=== PATIENT | female | born 1960 | race Asian ===

== ENCOUNTER 2020-03-24 11:05 | Inpatient (IN) | payer OTHER ==
[~2020-03-24] VITALS: Ht 152.4 cm; Wt 70.8 kg
[2020-03-24 11:19] VITALS: Ht 152.4 cm; Wt 70.8 kg
--- NOTE | 2020-03-24 11:50 | NUR ---
PT BIB SELF C/O L LEG PAIN X1 MONTH SHIP PILOT. PT STATES HAVING HX OF DM. PT STATES 1 MONTH AGO L LEG WAS "ITCHY AND EXCESSIVELY SCRATHED AND CAUSED OPEN SORES" YELLOW DRAINAGE NOTED TO COME FROM MULTIPLE OPEN SORES LOCATED ON LLE BELOW THE KNEE AND L FOOT. PT HAS SWELLING AND THAT IS WARM TO THE TOUCH ON LLE, + PULSES. PT AMBULATED TO [facility] AND STATES INCREASED PAIN WITH AMBULATION. PT STATES 10/10 BURING PAIN. PT IS A&OX4, VERABILZES NEEDS, IN POSITION OF COMFORT, LUNGS CTA, RESP E/U AND PLACED ON FULL CM. WILL CONTINUE TO [facility].
--- NOTE | 2020-03-24 12:02 | NUR ---
US IN PROGRESS
[2020-03-24 12:17] LABS: ALKALINE PHOSPHATASE 313 U/L (46-116); ALT/SGPT 14 U/L (14-59); AST/SGOT 20 U/L (15-37); CARBON DIOXIDE 29.4 mmol/L (21-32); CHLORIDE SERUM 100 mmol/L (98-107); CREATININE SERUM 1.3 mg/dL (0.6-1.0); GFR1 44 mL/min; GLUCOSE SERUM 78 mg/dL (74-106); SODIUM SERUM 138 mmol/L (136-145); TOTAL PROTEIN, SERUM 6.6 g/dL (6.4-8.2)
[2020-03-24] MEDS ORDERED: HUMALOG100 U/ML SC (12:20)
[2020-03-24] MEDS ORDERED: LANTI SQ (12:20)
[2020-03-24 12:21] LABS: ALBUMIN 1.2 g/dL (3.4-5.0)
--- NOTE | 2020-03-24 12:21 | NUR ---
PT STATES SHE TAKES AN UNKNOWN HTN MEDICATION
[2020-03-24 12:23] LABS: POTASSIUM SERUM 1.6 mmol/L (3.5-5.1)
[2020-03-24 12:46] LABS: PLATELET COUNT 454 x10^3mcL (130-400)
[2020-03-24 12:49] LABS: BAND NEUTROPHIL 2 % (0-10); MONOCYTE 1 % (0-7); PLATELET MORPHOLOGY PLATELETS INCREASED; SEGMENTED NEUTROPHILS 93 % (37-75); rbc morphology (normal/abnorm) NORMAL (NORMAL)
--- NOTE | 2020-03-24 13:41 | NUR ---
PT OFF THE FLOOR TO CT
--- NOTE | 2020-03-24 13:41 | NUR ---
SPOKE WITH NEPHEW ON PHONE FOR UPDATE.
--- NOTE | 2020-03-24 13:45 | NUR ---
PT NEPHEW CALLING FROM [employer] TO LEAVE HIS CONTACT CELL NUMBER NEEDED NAYELI:[phone]
--- NOTE | 2020-03-24 13:50 | NUR ---
PT TAKEN TO CT. IV IN LAC WAS DISLODGED WHEN PT WAS SLIDING FROM GURNEY TO CT BED FOR SCAN. BLEEDING WAS CONTROLLED AND HAS STOPPED AT THIS TIME. POTASSIUM CHLORIDE INFUSING WAS STOPPED TO LAC AND STARTED ON RAC.
--- NOTE | 2020-03-24 15:30 | NUR ---
LAB AT BEDSIDE FOR REPEAT LACTIC ACID.
--- NOTE | 2020-03-24 15:57 | NUR ---
PT GIVEN PAUL CRACKERS AND WATER, AWARE.
[2020-03-24 16:30] LABS: T3 TOTAL 0.13 ng/mL
[2020-03-24 16:31] LABS: FREE T4 0.7 ng/dL (0.76-1.46); MAGNESIUM 2.1 mg/dL (1.8-2.4); PHOSPHOROUS 2.3 mg/dL (2.5-4.9)
[2020-03-24 16:33] LABS: CHOLESTEROL/HDL RATIO 8.7; T4(THYROXINE) 2.1 ug/dL (4.7-13.3)
--- NOTE | 2020-03-24 17:01 | NUR ---
PT DISLODGED IV FROM RAC. BLEEDING WAS CONTROLLED AND IV D/C'ED. ANGIOCATH WAS INTACT ADN NEW IV STARTED IN R WRIST
--- NOTE | 2020-03-24 17:10 | NUR ---
REPORT GIVEN TO REENA TO ADMIT PT TO ROOM 234B AND ASSUME CARE.
[2020-03-24 17:26] LABS: microscopic required? YES; urine erythrocyte TRACE (NEGATIVE)
[2020-03-24 17:52] LABS: AMPHETAMINE QUAL UR NONE DETECTED (See below)
[2020-03-24 17:53] VITALS: BP 168/83
--- NOTE | 2020-03-24 18:00 | NUR ---
PT ARRIVED VIA GURNEY WITH MANAGER PERIOPERATIVE BY BEDSIDE. PT IS AWAKE ALERT, DENIES PAIN AND SOB. RESOURCE RN BHAVESH WILL HELP EM WITH ADMISSION PAPERWORK AND ASSESSMENT. WILL MONITOR PT.
--- NOTE | 2020-03-24 18:06 | NUR ---
RECEIVED PT FROM ER, PT ADMIT FOR LEFT LEG CELLULITIS, PT IS A/O X4, VERBAL RESPONSIVE. LUNG SOUND CLEAR BILATERAL, NO COUGH, NO SOB. PT IS ON TELE 10, SR WITH 1ST DEGREE, DENY ANY CHEST PAIN OR DISCOMFORT. BOWEL SOUND PRESENT ALL 4 QUADRNTS, NO DISTENTION, NO TENDER. PEDAL PULSE PRESENT BOTH FEET BUT LEFT FEET VERY WEAK. THERE SWELLING AND RED AT LEFT LEG. MULTIPLE OPEN WOUND AND SKIN TEARS AT LEFT LEG. PODATRIST AT BEDSIDE. IV AT RIGHT WRIST, NO LEAKING, NO INFILTRATION. ALL ADLS ASSIST, ALL NEED MET, CALL LIGHT IN REACH, WILL CONTINUE TO MONITOR.
--- NOTE | 2020-03-24 19:00 | NUR ---
PT IS AWAKE, REALXED. DENIES ANY PAIN THIS TIME AND SOB. WILL ENDORSE CARE TO PENSION FUND MANAGER RN.
--- NOTE | 2020-03-24 19:30 | NUR ---
RECEIVED PT IN BED AWAKE RESTING COMFORTABLY. A/O X4 ABLE TO MAKE NEEDS KNOWN, ABLE TO FOLLOW COMMANDS, SPEECH IS CLR, NO C/O SALAZAR OR DIZZINESS. RADIAL AND PEDAL PULSES PRESENT, EDEMA ON LLE +1 NOTED. RESP IS EVEN AND UNLABORED, ON ROOM AIR WITH SPO2 97%, LUNG SOUNDS CLR BILATERALLY. ACTIVE BS PRESENT X4, NO C/O NVD, PT VOIDS FREELY, NO C/O DISCOMFORT. REDNESS AND MULTIPLE OPEN WOUND ON LLE, OPEN TO AIR, C/O LEG PAIN THAT IS TOLERABLE AT THIS TIME. IV SITE ON THE RW, PATENT AND FLUSHING WELL. WILL CONT TO MONITOR PT FOR CHANGES IN CONDITION, BED TO LOWEST POSITION, CALL LIGHT WITHIN REACH.
--- NOTE | 2020-03-24 19:45 | NUR ---
CALLED PHARMACY REGARDING LATE MEDICATIONS (ZOSYN, VANCO, AND K-RIDER). WAS SUGGESTED TO GIVE ZOSYN FIRST THEN GIVE VANCO AND K-RIDER TOGETHER SINCE THEY ARE COMPATIBLE. WILL GIVE SUGGESTED. AND ENDORSE CARE TO BLAIR LERMA RN.
[2020-03-24 21:03] VITALS: BP 157/75
[2020-03-24 21:25] LABS: CALCIUM 7.4 mg/dL (8.5-10.1); CARBON DIOXIDE 28.9 mmol/L (21-32); CREATININE SERUM 1.2 mg/dL (0.6-1.0)
[2020-03-24 21:35] LABS: POTASSIUM SERUM 2.2 mmol/L (3.5-5.1)
--- NOTE | 2020-03-24 22:21 | NUR ---
DR. ROCHA MADE AWARE OF PT'S K LEVEL 2.2. RECEIVED NO NEW ORDER AT THIS TIME.
[2020-03-25 05:19] VITALS: BP 108/52
--- NOTE | 2020-03-25 05:25 | NUR ---
VANCOMYCIN COMPLETED DOSE AT 0430, SPOKE WITH PHARMACY TO ADJUST NEXT DOSE ACCRDINGLY. VANCOMYCIN TROUGH FOR 03/25 AT 1800 CANCELLED. ORDERED NEW VANCOMYCIN THROUGH AT 1400, 1 HOUR BEFORE NEXT VANCO DOSE AT 1500. WILL ENDORSE TO NEXT SHIFT NURSE.
--- NOTE | 2020-03-25 06:27 | NUR ---
PT STANDING ON THE SIDE OF THE BED, GOT OUT OF BALANCE AND LANDED TO THE FLOOR ON HER BUTTOCKS. NO IMMEDDIATE INJURY, NO BLEEDING NOTED. PT ASSISTED BACK IN BED WITH THE HELP OF 3 STAFF. PT DENIES ANY PAIN AT THIS TIME, DENIES SALAZAR OR DIZZINESS. PT STATES SHE LANDED ONLY ON HER BUTTOCKS AND DID NOT HIT HER HEAD. PT WAS SEEN AND EXAMINED BY DR. ROCHA. RECEIVED NO NEW ORDER AT THIS TIME. BED TO LOWEST POSITION, CALL LIGHT WITHIN REACH, BED ALARM ON AND INSTRUCTED TO USE THE CALL LIGHT IF NEEDED HELP. CONT TO PROVIDE PT WITH CLUTTER FREE ENVIRONMENT. WILL CONT TO MONITOR FOR CHANGES IN CONDITION.
--- NOTE | 2020-03-25 07:15 | NUR ---
PT RECEIVED FROM LABORATORY SPECIALIST RN. PT IS CURRENTLY SLEEPING, NO SIGNS OF PAIN AND TROUBLE BREATHING. REPORTED FALL LAST NIGHT BECAUSE PT WAS OUT OF BALANCE. NO INJURIES REPORTED. SCANNED 2100 VANCO WAS GIVEN SEPARATELY FROM POTASSIUM CHLORIDE (PHARMACIST SAID THEY WERE COMPATIBLE TO GIVE TOGETHER). VANCO WAS GIVEN AT 0430 AND NIGHT RN INFORMED PHARMACIST WHO WOULD MOVE NEXT VANCO DOSE (0700) TO 1700. WILL FOLLOW UP WITH PHARMACY TO CHANGE VANCO ADMINISTRATION TIME. BED AT LOWEST POSITION AND CALL LIGHT NEXT TO PT. WILL CONTINUE TO MONITOR.
--- NOTE | 2020-03-25 07:30 | NUR ---
WAS PRESENT WHEN J2EE ARCHITECT CHANGED DRESSING FOR PT's LEFT LEG CELLULITIS. SHE STATED THAT THEY WILL PERFORM DAILY DRESSING CHANGES UNLESS THEY INPUT AN ORDER. THEY ARE CURRENTLY CLEANING THE PT WITH BETADINE, COVERING WITH EMOLLIENT DRESSING, THEN LOOSELY WRAP WITH GAUZE AND KERLEX.
[2020-03-25 08:07] VITALS: BP 153/70
[2020-03-25 08:28] LABS: PLATELET COUNT 362 x10^3mcL (130-400); RED CELL DISTRIBUTION WIDTH 14.2 % (11.5-14.5)
[2020-03-25 08:35] LABS: CALCIUM 7.3 mg/dL (8.5-10.1); CARBON DIOXIDE 24.4 mmol/L (21-32); CREATININE SERUM 1.2 mg/dL (0.6-1.0); PHOSPHOROUS 3.7 mg/dL (2.5-4.9)
--- NOTE | 2020-03-25 09:00 | NUR ---
PAGED TO INFORM HER OF PT WBC, POTASSIUM, AND BP. WILL WAIT FOR CALL BACK.
[2020-03-25 09:25] LABS: POTASSIUM SERUM 2.6 mmol/L (3.5-5.1)
--- NOTE | 2020-03-25 09:55 | NUR ---
SPOKE TO PHARMACIST ABOUT PT's CHANGE OF ADMINSITRATION TIME FOR [facility]. PHARMACIST STATES SHE WILL CHANGE ADMIN TIME TO 1700.
--- NOTE | 2020-03-25 10:00 | NUR ---
PAGED TO INFORM HER OF PT WBC, POTASSIUM, AND BP. WILL WAIT FOR CALL BACK.
--- NOTE | 2020-03-25 10:45 | NUR ---
DOCTOR ALEJANDRINA PRESENT AT [facility] WITH RESIDENTS. HE IS INFORMED OF PT WBC, AND K. PT IS ON ABX AND PENDING WOUDN CULTURE. WILL ORDER REPLACEMENT FOR POTASSIUM. DR. TINOCO ALSO STATED THAT HE WILL INPUT A MEDICATION FOR HER BLOOD PRESSURE. DRs NOTED PT EDEMA AND WILL ALSO INPUT ALBUMIN AND LASIX. PT IS STABLE, DENIES ANY NEEDS AT THIS TIME. WILL CONTINUE TO MONITOR.
--- NOTE | 2020-03-25 11:20 | NUR ---
FNS STAFF WAS INFORMED THAT PT IS VEGETARIAN DURING HER ROUNDS.
--- NOTE | 2020-03-25 11:30 | NUR ---
BEDSIDE COMMODE BY PT BEDSIDE. PT STATES SHE IS MORE COMFORTABLE USING A BEDSIDE COMMODE COMPARED TO USING THE RESTROOM.
--- NOTE | 2020-03-25 11:47 | NUR ---
[facility] CALLED TO MAKE SURE PT WAS NOT BUSY SO THEY CAN PERFORM THEIR EXAM.
[2020-03-25 11:57] LABS: BAND NEUTROPHIL 1 % (0-10); MONOCYTE 2 % (0-7); SEGMENTED NEUTROPHILS 93 % (37-75)
[2020-03-25 11:58] LABS: rbc morphology (normal/abnorm) NORMAL (NORMAL)
[2020-03-25 12:03] VITALS: BP 150/79
--- NOTE | 2020-03-25 14:00 | NUR ---
PT IS CURRENTLY SLEEPING, AROUSABLE TO VERBAL STIMULI. DENIES SOB. PT REPORTS THAT PAIN IS MANGEABLE THIS TIME ON LEFT LOWER REXTREMITY. SAFETY PRECAUTIONS IN PLACE. WILL CONTINUE TO MONITOR.
[2020-03-25 16:16] VITALS: BP 153/79
--- NOTE | 2020-03-25 18:00 | NUR ---
PT IS AWAKE THIS TIME, RELAXED. PAIN IS STILL MANGEABLE. DENIES ANY SOB. SAFETY PRECAUTIONS IN PLACE. WILL CONTINUE TO MONITOR.
--- NOTE | 2020-03-25 18:30 | NUR ---
PT IS STABLE. PAIN IS STILL MANGEABLE. NO SOB. PT ASKED IF SHE WANTED MEDICATION FOR HER COUGHS, PT DENIED ALL DAY AND STATED THAT COUGH IS CHRONIC. SAFETY PRECAUTIONS IN PLACE. WILL ENDORSE CARE TO INSOLVENCY CONSULTANT RN.
--- NOTE | 2020-03-25 19:30 | NUR ---
RECEIVED PT IN BED, AWAKE RSTING CMFORTABLY. PT IS A/O X4 ABLE TO MAKE NEEDS KNOWNS, ABLE TO FOLLOW COMMANDS, ABLE TO MAKE NEEDS KNOWN, SPEECH IS CLR, NO SALAZAR OR DIZZINESS NOTED. RESP IS EVEN AND UNLABORED, LUNG SOUNDS CLR, SPO2 96% ON RA. RADIAL AND PEDAL PULSES PRESENT, EDEMA ON LLE +1 NOTED. ABD ROUND AND SOFT, ACTIVE BS PRESENT X4 QUADS, NO C/O NVD. VOIDS FREELY, NO DISCOMFORT WHEN URINATING. SKIN IS WARM, DRY AND INTACT. LEFT LEG WITH MULTIPLE WOUNDS COVERED WITH DRESSING CDI. IV SITE ON THE RIGHT WRIST, PATENT AND FLUSHING WELL. ON ATB ZOZYN AND VANCOMYCIN. BED TO LOWEST POSITION CALL LIGHT WITHIN REACH AND INSTRUCTED PT TO ASK HELP WHEN NEEDED. WILL CONT TO MONITOR.
--- NOTE | 2020-03-25 20:15 | NUR ---
GOSPEL SINGER REPORTED PT WITH INCREASE TEMP OF 100.2 AND ELEVATED BP OF 167/78. COOLING MEASURES PROVIDED, MADE PT COMFORTABLE IN BED. CONT TO MONIOTR BP, PT HAS NO C/O DIONTE PAIN.
[2020-03-25 20:22] VITALS: BP 167/78
--- NOTE | 2020-03-25 21:30 | NUR ---
PT TEMP 99.0. NO C/O PAIN, NO ACUTE DUSTRESS NOTED. RESP EVEN AND UNLABORED. WILL CONT TO MONIOTR FOR CHANGES IN CONDITON.
[2020-03-25 23:07] VITALS: BP 166/79
--- NOTE | 2020-03-25 23:07 | NUR ---
PT WITH C/O PAIN ON THE LEFT LEG 5/10, NORCO PO GIVEN ORDERED. ALSO, PT'S BP ELEVATED, TAKEN MULTIPLE TIMES. LAST RE CHECK OF BP 166/79, HR 85. DR. ROCHA MADE AWARE. PER DR, MONITOR BP FOR NOW AND UPDATE HER IN AN HOUR. DR. RIZVI ALSO MADE AWARE REGARDING PT'S NON PRODUCTIVE COUGH. RECHECKED TEMP, 99.0
[2020-03-26 00:44] VITALS: BP 148/79
--- NOTE | 2020-03-26 00:50 | NUR ---
PAGED DR. ROCHA TO REPORT PT'S BP LOWERED TO 148/79, TEMP 98.9. PT IN BED RESTING COMFORTABLY WITH EYES CLOSED, NO C/O PAIN, NO ACUTE DISTRESS NOTED. RESP EVEN AN UNLABORED. WILL CONT TO MONITOR.
[2020-03-26 05:31] VITALS: BP 167/80
[2020-03-26 06:49] LABS: PLATELET COUNT 394 x10^3mcL (130-400); RED CELL DISTRIBUTION WIDTH 14.3 % (11.5-14.5)
--- NOTE | 2020-03-26 06:58 | NUR ---
PT GIVEN APRESOLINE PO ORDERED FOR SBP>160, RECHECKED BP AFTER 1 HOUR, BP 152/65, HR 83. PT REMAINED IN BED NO ACUTE DISTRESS NOTED. RESP IS EVEN AND UNLABORED. CONT ON ATB VANCO AND ZOSYN, NO ASE NOTED. LEFT LEG WITH LIGHT DRESSING NOTED WITH MOD AMOUNT OF DISCHARGE. BED TO LOWEST POSITION GOPI LIGHT WITHIN REACH, WILL CONT TO MONIOTR PT FOR CHANGES IN CONDITION.
[2020-03-26 07:30] LABS: CALCIUM 6.8 mg/dL (8.5-10.1); CARBON DIOXIDE 24.9 mmol/L (21-32); CREATININE SERUM 1.1 mg/dL (0.6-1.0); PHOSPHOROUS 2.9 mg/dL (2.5-4.9)
--- NOTE | 2020-03-26 07:30 | NUR ---
PT RECEVIED FROM BELT GLASS SANDER RN. RN REPORTED PT FELL DURING BELT GLASS SANDER BUT NO INJURY REPORTED. PT IS CURRENTLY SLEEPING, EASILY ARUOSABLE TO VERBAL STIMULI. PT STATES SHE HAS PAIN 6/10 BUT MANGEABLE THIS TIME. SHE IS AWARE OF PAIN MEDICATION AVAILABLE. DENIES SOB THIS TIME. WILL DOCUMENT ASSESSMENT. SAFETY PRECAUTIONS IN PLACE. WILL CONTIUE TO MONITOR.
[2020-03-26 08:14] LABS: POTASSIUM SERUM 2.6 mmol/L (3.5-5.1)
[2020-03-26 08:15] LABS: ALBUMIN 1.3 g/dL (3.4-5.0)
[2020-03-26 08:38] VITALS: BP 160/100
--- NOTE | 2020-03-26 09:00 | NUR ---
LAB REPORTED CRITICAL LAB VALUE K=2.6. PAGED DOCTORS, WAITING FOR REPLY.
--- NOTE | 2020-03-26 09:30 | NUR ---
NO CALL BACK FROM BUT I NOTICED NEW K-RIDER ORDER. WAITING TO FOR VERIFICATION AND ADMINISTRATION TIME.
[2020-03-26 13:00] VITALS: BP 129/63
--- NOTE | 2020-03-26 13:24 | NUR ---
ECHOCARDIOGRAM PENDING-WITH NURSE
[2020-03-26 14:20] LABS: MONOCYTE 4 % (0-7); SEGMENTED NEUTROPHILS 87 % (37-75)
[2020-03-26 14:21] LABS: rbc morphology (normal/abnorm) NORMAL (NORMAL)
[2020-03-26 17:41] VITALS: BP 158/76
--- NOTE | 2020-03-26 19:00 | NUR ---
PT REMAINED STABLE DURING THIS SHIFT. CRITICAL VALUES K=2.6 REPLACED WITH [id number] K RIDER, ALBUMINAR GIVEN ONCE PER ORDER. DOCTOR WAS PAGED FOR CRITICAL LABS, NO CALL BACK BUT NEW ORDERS FOR REPLACEMENT WERE NOTED AND ACKNOWLEDGE. PRN PAIN MEDICATION NORCO WAS ADMINISTERED ONCE DURING THIS SHIFT. PATIENT REPORTS THAT PAIN MEDICTION HELPED BUT HAS REFUSED IT FOR THE REST OF THE DAY SAYNIG THAT PAIN IS MANGEABLE. MULTIPLE IV MEDICATIONS WERE GIVEN DURING THIS SHIFT, ORDER GIVEN PER NURSING JUDGEMENT IN RELATION TO TIME. PT's FEET ARE ELEVATED PER ORDER. DURING THE AFTERNOON, PT REPORTED IV WAS PULLED OUT, RESOURCE RN ALINE PLACED A NEW IV ON RIGHT FOREARM FOR ME. PT WAS GIVEN 2x9u OF INSULIN FOR ACHS GLUCOSE CHECKS. VANCO TROUGH WAS HIGH AT 22.6 AND PHARMACIST STATED THAT HE WOULD CANCEL CURRENT VANCO ORDER FOR 1700 AND CHANGE THE DOSING. PT CONTINUES TO BE A/Ox4, PAIN IS MANAGEABLE, DENIES SOB WHEN RESTING BY END OF SHIFT. CARE WILL BE ENDORSED TO HOUSE SITTER RN. HEEL SPLITTER STUDENT, WOJCIECH, WAS SHADOWING ME FOR THIS SHIFT AND HELPED ME WITH PRIMING TUBES AND ADMINISTERING PO AND SQ MEDICATIONS. OBSERVED FOR CORRECT TECHNIQUES WITH FIRST ADMINSITRATIONS AND WAS NEARBY AND MOSTLY PRESENT FOR FOLLOWING INTERVENTIONS.
--- NOTE | 2020-03-26 19:40 | NUR ---
PT C/O NOT HAVING DINNER. PT WAS EXPLAINED HER BEING PLACE ON NPO ORDER DUE TO PROCEDURE AND WILL HAVE TO GET AN ORDER FROM MD TO TO GET HER DIET ORDER.
--- NOTE | 2020-03-26 20:10 | NUR ---
SPOKE TO DR GERARDO TO GET DIET ORDER FOR PT. PER DR. GERARDO HE WILL PLACE AN ORDER.
[2020-03-26 21:12] VITALS: BP 153/73
[2020-03-27 05:50] VITALS: BP 189/91
--- NOTE | 2020-03-27 07:30 | NUR ---
RECEIVED PATIENT IN BED, SITTING UP EATING BREAKFAST TRAY. ALERT AND ORIENTED, SPEECH CLEAR. RESP EVEN AND UNLABORED, LUNGS CLEAR, PATIENT ON ROOM AIR. PER PATIENT SHE HAS OCCAS DRY COUGH, AND SOB ON EXERTION. IVF INFUSING WELL, SITE PATENT. ABD SOFT AND ROUND, BOWEL SOUNDS ACTIVE. DENIES ANY N/V/D LBM YESTERDAY PER PATIENT. +1 BILAT EDEMA NOTED UPPER AND LOWER EXTREMITIES. PULSES PALABLE. LEFT LEG NOTED WITH DRESSING INTACT, PATIENT UNABLE TO WIGGLE TOES ON LEFT FOOT, BUT TOES AND LEFT FOOT WARM TO TOUCH. DRY SCALY SKIN NOTED ON RIGHT FOOT WITH LARGE CALLOUS NOTED ON RIGHT HEEL AREA. GENERALIZED WEAKNESS NOTED. TELE 10 NSR. LEFT LEG PAIN IS 5/10 ON THE PAIN SCALE, BUT TOLERABLE AT THIS TIME. WILL CONTINUE TO MONITOR.
[2020-03-27 07:45] LABS: RED CELL DISTRIBUTION WIDTH 14.3 % (11.5-14.5)
[2020-03-27 07:58] LABS: BASOPHIL % 0 % (0-2); PLATELET COUNT 418 x10^3mcL (130-400)
--- NOTE | 2020-03-27 08:05 | NUR ---
PT REMAINED IN BED RESTING WITH EYES CLOSED EASILY ARROUSABLE. NO C/O PAIN, NO ACUTE DISTRESS NOTED. RESP IS EVEN AND UNLABORED. NEEDS ATTENDED AND MET, FREQUENT VISUAL MONITORING RENDERED. C/O LEFT LEG PAIN WAS GIVEN NORCO AND WAS EEFECTIVE. BED TO LOWEST POSITION, CALL LIGHT WITHIN REACH, ENDORSED CARE TO THE NEXT SHIFT NURSE.
[2020-03-27 08:16] LABS: CALCIUM 6.8 mg/dL (8.5-10.1); CARBON DIOXIDE 25.2 mmol/L (21-32); CHLORIDE SERUM 98 mmol/L (98-107); CREATININE SERUM 0.9 mg/dL (0.6-1.0); GFR1 > 60 mL/min; GLUCOSE SERUM 146 mg/dL (74-106); MAGNESIUM 1.8 mg/dL (1.8-2.4); PHOSPHOROUS 2.4 mg/dL (2.5-4.9); SODIUM SERUM 137 mmol/L (136-145)
[2020-03-27 08:22] VITALS: BP 168/73
[2020-03-27 08:32] LABS: POTASSIUM SERUM 2.3 mmol/L (3.5-5.1)
--- NOTE | 2020-03-27 09:30 | NUR ---
PATIENT'S K+ 2.3. NEW ORDERS RECEIVED.
--- NOTE | 2020-03-27 10:15 | NUR ---
PATIENT C/O LEFT LEG PAIN AT THIS TIME 6/10 ON THE PAIN SCALE. WILL BE MEDICATED WITH NORCO PO ORDERED. WILL MONITOR FOR EFFECT.
--- NOTE | 2020-03-27 12:00 | NUR ---
DR ANDRADE AT BEDSIDE EXPLAINING ANGIO CATH PROCEDURE TO BE DONE TOMORROW. PATIENT VERBALIZED UNDERSTANDING AND DR ANDRADE ANSWERED PATIENT'S QUESTIONS. CONSENTS SIGNED. WILL CONTINUE TO MONITOR.
--- NOTE | 2020-03-27 12:03 | NUR ---
PATIENT'S PLAN OF CARE WAS DISCUSSED AND REVIEWED WITH MENTAL HEALTH SPECIALIST:MIRTA ADLER. I HAVE REVIEWED THE DATA COLLECTION BY MENTAL HEALTH SPECIALIST (NAME):MIRTA ADLER. ENTERED ON (DATE/TIME):03/27. I CONCUR WITH THE DATA AND ANY EXCEPTIONS OR COMMENTS ARE LISTED BELOW:
[2020-03-27 12:29] VITALS: BP 172/83
[2020-03-27 14:53] LABS: CALCIUM 6.4 mg/dL (8.5-10.1); CREATININE SERUM 1.1 mg/dL (0.6-1.0)
[2020-03-27 15:09] LABS: POTASSIUM SERUM 2.5 mmol/L (3.5-5.1)
[2020-03-27 16:08] VITALS: BP 112/73
--- NOTE | 2020-03-27 18:15 | NUR ---
PATIENT REMAINS IN BED APPEARS TO BE RESTING WELL. PATIENT DID NOT HAVE DINNER TRAY PATIENT IS NPO FOR PROCEDURE TOMORROW. FSBS WAS 158 AT 1630. NO INSULIN COVERAGE GIVEN PATIENTIS NPO. NO ACUTE DISTRESS NOTED. WILL CONTINUE TO MONITOR.
--- NOTE | 2020-03-27 19:50 | NUR ---
PT. REPORT RECIEVED FROM DAY SHIFT NURSE, PT. RESTING IN BED, EASILY AROUSABLE, CLEAR SPEECH, NO FACIAL DROOP, NO ACUTE CHANGE/ DISTRESS NOTED, RR EVEN AND UNLABORED ON RA, CHEST RISE SYMT, TELE 10 NSR, L LEG DRESSING DCI, R FA IV INTACT AND WNL, ALL SAFETY MEASURES FOLLOWED, WILL CONT TO MONITOR.
[2020-03-27 20:51] VITALS: BP 168/81
--- NOTE | 2020-03-27 21:13 | NUR ---
MADE DR. SOLANO AWARE THAT PT. IS NPO DUE TO SURGERY KATERINA, BS WAS [address] SOLANO HOLD R INSULIN BUT TO GIVE LANTUS 10 U SQ.
--- NOTE | 2020-03-28 01:00 | NUR ---
PT RESTING IN BED. RR EVEN AND UNALBORED. NO S/SX OF ADN. BED LOCKED AND LOWERED. CALL LIGHT WITHIN REACH. WILL CONTINUE TO MONITOR.
--- NOTE | 2020-03-28 03:12 | NUR ---
PT. RESTING IN BED W/ EYES CLOSED, NO ACUTE CHANGE/ DISTRESS NOTED, RFA IV INTACT AND WNL, RR EVEN AND UNLABORED ON RA, CHEST RISE SYMT, TELE 10 NSR, ALL SAFETY MEASURES IN PLACE, WILL CONT TO MONITOR.
[2020-03-28 05:56] VITALS: BP 142/75
--- NOTE | 2020-03-28 06:25 | NUR ---
BS [address] WALSH TO HOLD AM INSULIN DUE TO PT. BEING NPO AND SURGERY.
--- NOTE | 2020-03-28 06:31 | NUR ---
MT. DR NICO PINEDA TO GIVE AM INSULIN MT. SLIDING SCALE.
--- NOTE | 2020-03-28 06:48 | NUR ---
PT. HAS BEEN CLIP AND PREP BOTH GROINS ND NURSING PROCEDURES, REPORT HAS BEEN GIVEN. PT. IS RESTING NO ACUTE DISTRESS/ CHANGE NOTED.
[2020-03-28 07:28] LABS: RED CELL DISTRIBUTION WIDTH 14.2 % (11.5-14.5)
[2020-03-28 07:56] LABS: CALCIUM 6.7 mg/dL (8.5-10.1); CARBON DIOXIDE 23.6 mmol/L (21-32); CHLORIDE SERUM 100 mmol/L (98-107); CREATININE SERUM 0.9 mg/dL (0.6-1.0); GFR1 > 60 mL/min; GLUCOSE SERUM 196 mg/dL (74-106); MAGNESIUM 1.9 mg/dL (1.8-2.4); PHOSPHOROUS 2.4 mg/dL (2.5-4.9); SODIUM SERUM 137 mmol/L (136-145)
[2020-03-28 07:59] LABS: POTASSIUM SERUM 2.7 mmol/L (3.5-5.1)
--- NOTE | 2020-03-28 08:00 | NUR ---
PATIENT OFF UNIT FOR PROCEDURE.
--- NOTE | 2020-03-28 08:05 | NUR ---
LAB CALLED FOR k+ 2.7 CALLED MOHAN GONZALES AND SPOKE TO AINSLEY, INFORMED HIM OF k+ LEVEL AND HE SAID HE WILL INFORM THE DOCTOR.
--- NOTE | 2020-03-28 09:12 | NUR ---
DR. ANDRADE WOULD LIKE TO HAVE DR. LEE CALL AFTER HE HAS MADE ROUNDS ON THIS PATIENT. DR. ANDRADE LEFT MESSAGE FOR DR. LEE.
[2020-03-28 09:48] LABS: BASOPHIL % 0 % (0-2); PLATELET COUNT 488 x10^3mcL (130-400)
--- NOTE | 2020-03-28 10:11 | NUR ---
BACK FROM PROCEDURE, RIGHT GROIN DRESSING CLEAN,DRY AND INTACT. RIGHT LEG MAINTAINED STRAIGHT.
[2020-03-28 10:17] VITALS: BP 136/61
--- NOTE | 2020-03-28 11:30 | NUR ---
WOUND CARE CONSULT DONE. PT. BACK FROM PROCEDURE SLEEPING. LLE SEEN BY PODIATRY TEAM IN HOUSE, WILL FOLOW THE ORDER " Application of betadine and light dressing with kelix and tape to LLE "
[2020-03-28 11:53] VITALS: BP 102/63
--- NOTE | 2020-03-28 12:58 | NUR ---
PATIENT AWAKE NOW, ASSISTED TO BSC, VOIDED FREELY, SMALL BM NOTED WELL. OVERDUE MEDS GIVEN.
[2020-03-28 16:42] VITALS: BP 132/63
[2020-03-28 19:50] VITALS: BP 150/76
--- NOTE | 2020-03-28 20:14 | NUR ---
RECIEVED PATIENT FROM DAY SHIFT NURSE. PT RESTING IN BED WATCHING TV. RR EVEN AND UNLABORED. A&O X4. NO S/SX ADN. RFA IV CDI AND PATENT. BED LOCKED AND LOWERED. CALL LIGHT WITHIN REACH. WILL CONTINUE WITH PLAN OF CARE.
--- NOTE | 2020-03-29 01:09 | NUR ---
I HAVE REVIEWED THE DATA COLLECTION BY ORIENTEE (NAME): CONSTANCE GRIMES ENTERED ON (DATE/TIME):03/29/2020 0000H I CONCUR WITH THE DATA AND ANY EXCEPTIONS OR COMMENTS ARE LISTED BELOW: DRESSING TO RIGHT GROIN CDI. NO BLEEDING NOTED.
[2020-03-29 05:10] VITALS: BP 126/78
[2020-03-29 07:22] LABS: RED CELL DISTRIBUTION WIDTH 14.4 % (11.5-14.5)
--- NOTE | 2020-03-29 07:30 | NUR ---
RECEIVED REPORT FROM NIGHT NURSE. PATIENT RESTING IN BED, RESPIRATIONS EVEN AND UL ON RA. DENIES PAIN AND DISCOMFORT. RFA 20G INTACT AND PATENT, NO SWELLING OR ERYTHEMA AT SITE. DRESSING TO LLE CDI. BED IN LOWEST POSITION, CALL LIGHT IN REACH, SAFETY MEASURES IN PLACE.
[2020-03-29 07:33] LABS: CALCIUM 6.3 mg/dL (8.5-10.1); CARBON DIOXIDE 27.1 mmol/L (21-32); CHLORIDE SERUM 103 mmol/L (98-107); CREATININE SERUM 0.8 mg/dL (0.6-1.0); GFR1 > 60 mL/min; GLUCOSE SERUM 88 mg/dL (74-106); MAGNESIUM 1.8 mg/dL (1.8-2.4); PHOSPHOROUS 2.5 mg/dL (2.5-4.9); SODIUM SERUM 139 mmol/L (136-145)
[2020-03-29 07:38] LABS: POTASSIUM SERUM 2.7 mmol/L (3.5-5.1)
[2020-03-29 08:28] VITALS: BP 175/92
[2020-03-29 08:45] LABS: BASOPHIL % 0 % (0-2); PLATELET COUNT 444 x10^3mcL (130-400)
[2020-03-29 12:12] VITALS: BP 174/84
[2020-03-29] MEDS ORDERED: PLAVIX75 M1 PO (13:59)
[2020-03-29] MEDS ORDERED: ASPIRIN FOR CHI81 M1 PO (14:00)
[2020-03-29] MEDS ORDERED: LASIX20 MG PO (14:03)
--- NOTE | 2020-03-29 14:21 | NUR ---
PHYSICAL THERAPY NOTE ATTEMPTED FOR SCHEDULED PHYSICAL THERAPY Tx SESSION. Pt REFUSED AT THIS TIME. WILL ATTEMPT FOR NEXT SCHEDULED TREATMENT SESSION PENDING Pt APPROPRIATENESS.
--- NOTE | 2020-03-29 14:46 | NUR ---
Initial Nutrition Assessment: 235A LY, CHRISTOPHER 59F HR C: pt is vegetarian and need a high protein diet Dx: L leg cellulitis PMHx: HTN, left leg infection, laceration, hypercholesterolemia, Cellulitis PSHx: none noted Labs: (03/29) WBC 13.2H, H/H 8.9/26L, K 2.7H, Calcium 6.3L (03/24) A1C 11.1H, Alk ph 313H, Ammonia < 10L, albumin 1.3L, HDL 13L, Amylase 15L, Lipase 65L Meds: Zosyn, Vancocin, Humulin, Heparin, Lantus, Mucinex, Colace, Zestril, Lasix, Apresoline, Sodium, Redfox Diet: CCHO 60 Cardiac diet PO intake since admission: (03/25) B: 85%, L: 85%, D: 80%, (03/27) B: 50%, L: 90%, (03/28) L: 50%, D: 80%; av.28% Ht: 152.4cm/60in Wt: 70.76kg/155.7lbs BMI: 30.5 Bed scale: 164.2lbs IBW: 45.45kg/100lbs %IBW: 155.7% ABW: 52kg UBW: 135lbs six months ago. Age: 59 Food Allergies: NKFA per pt Edema: none noted Last BM: 03/28 Skin: LT leg wound William: 20 Per H and P (03/27), The patient is a 59-year-old female with infection of the left leg which has worsened over the last week. She reports pain on walking which relieves with rest and has prior history of other non-healing wounds of the feet with delayed healing. RD Note (03/29/2020) Pt was seen lying in bed during bedside visit. Pt confirmed that she's on a vegetarian diet with no garlic and onion. Pt denied GI distress, swallowing/chewing difficulty and practice of physical activity. Pt was able to tolerate diet with fair appetite. However, pt would prefer chocolate flavor ONS d/t vanilla was too sweet for her. Additionally, pt reported a weight gain of 20 lbs in 6 months with no drastic change of life style. At home, pt followed a regular vegetarian diet with B complex supplement. Asked pt if there is any adjustments needed to make with current diet; pt denied and stated that everything has been so far. Problem with: N/V/D/C: none per pt Problems with: Chewing: Swallowing: none per pt Current appetite: fair per pt Recent wt change: 20 lbs weight gain in 6 months per pt %wt change: 14.8% weight gain in six months Height: 5' per pt Vitamin/Supplement use: B complex per pt Special diet at home: vegetarian diet with no onion and garlic Physical activity: no Nutrition education given (specify specific nutrition education and handout given): education on diabetic diet was provided to pt. Provide examples of food with high carbohydrate, explain the serving sizes of carbohydrate in carb counting, and provide a sample menu for [facility] vegetarian diet. Additionally, went over how to utilize food label with the principles of carbohydrate counting. Pt was engaging and open to education. Written education "Carbohydrate Counting for People with Diabetes" and "Diabetes Label Reading Tips" from [facility] were provided. Pt accepted education. Food-drug interactions? Education given? n/a Estimated Nutritional Needs Based on adjusted body weight (52kg) Energy: 7894-9016 kcal/day (30-35 kcal/kg for optimal wound healing) Protein: 62-78 g/day (1.2-1.5 g/kg for optimal wound healing) Fluid: 5554-5774 mL/day (1 mL/kcal) Nutrition Diagnosis: 1. Increased energy and protein needs r/t skin integrity a/e/b pt has non-healing wound to leg. Intervention 1. Continue CCHO 60, Cardiac, vegetarian diet as tolerate 2. Continue Glucerna BID for additional 440kcal and 20g protein. 3. Recommend Juan BID for wound healing. It will provide additional 180kcal and 5g protein. RD could not reach Dr. Franco via page. Recommendation was left via resident's call phone and it was acknowledged. Monitor/Evaluate Goal: PO intake at least 75% of estimated needs Monitor: PO intake, Labs, GI function, skin integrity, and Body weight F/U in 3-5 days as moderate risk 04/01-
[2020-03-29 15:37] LABS: CALCIUM 6.8 mg/dL (8.5-10.1); CARBON DIOXIDE 29.4 mmol/L (21-32); POTASSIUM SERUM 3.5 mmol/L (3.5-5.1)
[2020-03-29] MEDS ORDERED: CLEOCIN HCL300 MG PO (16:28)
[2020-03-29] MEDS ORDERED: LISINOPRIL10 MG PO (16:30)
[2020-03-29 17:00] VITALS: BP 147/65
--- NOTE | 2020-03-29 17:30 | NUR ---
RECEIVED DISCHARGE ORDER. PATIENT STATES THAT SHE CANNOT GO HOME YET BECAUSE THERE IS NO ONE TO TAKE CARE OF HER AND SHE IS BEDBOUND. DR. SOLANO MADE AWARE AND STATES HE WILL TALK TO DR. WALSH.
--- NOTE | 2020-03-29 18:55 | NUR ---
PATIENT RESTING IN BED, RESPIRATIONS EVEN AND UL ON RA. DENIES PAIN AND DISCOMFORT. NO ACUTE CHANGES NOTED THROUGHOUT SHIFT. BED IN LOWEST POSITION, CALL LIGHT IN REACH, SAFETY MEASURES IN PLACE. WILL CONT TO MONITOR AND ENDORSE TO AUTO DAMAGE ESTIMATOR NURSE.
--- NOTE | 2020-03-29 19:15 | NUR ---
AWAKE AND ALERT, ORIENTED TO NAME, PLACE, TIME AND SITUATION. SPEECH CLEAR AND APPROPRIATE. PT HAS DISCHARGE ORDERS TODAY, HOWEVER PER REPORT FROM DAY DAY SHIFT NURSE, PT HAD VERBALIZED UNABLE TO GO HOME SHE CANNOT TAKE CARE OF HERSELF AND HER BROTHER CANNOT TAKE CARE OF HER. PHYSICIAN HAD BEEN INFORMED AND PT NOT TO BE DISCHARGED TONIGHT. BREATHING EVEN AND UNLABORED ON ROOM AIR. DRESSING TO LEFT LEG CDI. WEAK BILATERAL PEDAL PULSES. REINFORCED NEED TO USE CALL LIGHT TO CALL FOR ASSISTANCE, PLACED WITHIN EASY REACH.
[2020-03-29 20:00] VITALS: BP 161/69
--- NOTE | 2020-03-29 22:27 | NUR ---
MANAGING DIRECTOR RECEIVED CALL FROM RUSSELL, I WAS UNABLE TO TAKE THE CALL AT THAT TIME. RUSSELL WHO IDENTIFIED HERSELF A NIECE LEFT HER CALL BACK NUMBER [phone]. ATTEMPTED TO CALL HER AT THIS NUMBER, HOWEVER, NO ONE ANSWERED AND UNABLE TO LEAVE MESSAGE.
--- NOTE | 2020-03-30 01:00 | NUR ---
EYES CLOSED, BREATHING EVEN AND UNLABORED ON ROOM AIR. CALL LIGHT WITHIN EASY REACH.
--- NOTE | 2020-03-30 02:33 | NUR ---
CALLED STATED SHE WAS HUNGRY. PROVIDED WITH PUDDING AND PAUL CRACKERS. AWAKE AND ALERT.
[2020-03-30 05:10] VITALS: BP 174/83
--- NOTE | 2020-03-30 06:32 | NUR ---
EYES CLOSED, EASILY AWAKENED. SLEPT THROUGH MOST OF SHIFT. BREATHING EVEN AND UNLABORED ON ROOM AIR. CALL LIGHT WITHIN EASY REACH.
[2020-03-30 06:33] VITALS: BP 151/81
--- NOTE | 2020-03-30 07:08 | NUR ---
in no acute distress. endorsed to nurse sally
--- NOTE | 2020-03-30 07:30 | NUR ---
RECEIVED REPORT FROM NIGHT NURSE. PATIENT RESTING IN BED, RESPIRATIONS EVEN AND UNLABORED ON RA. AAO TIMES 4. DENIES PAIN AND DISCOMFORT. DRESSING TO L LEG CDI. IV SITE TO RFA INTACT AND PATENT. BED IN LOWEST POSITION, CALL LIGHT IN REACH, SAFETY MEASURES IN PLACE. WILL CONT TO MONITOR.
[2020-03-30 08:14] LABS: CALCIUM 7.1 mg/dL (8.5-10.1); CARBON DIOXIDE 28.6 mmol/L (21-32); MAGNESIUM 2.2 mg/dL (1.8-2.4); PHOSPHOROUS 2.3 mg/dL (2.5-4.9); POTASSIUM SERUM 3.5 mmol/L (3.5-5.1)
[2020-03-30 08:16] VITALS: BP 155/79
[2020-03-30 08:46] LABS: BASOPHIL % 0.1 % (0-2)
[2020-03-30 08:49] LABS: PLATELET COUNT 448 x10^3mcL (130-400); RED CELL DISTRIBUTION WIDTH 14.7 % (11.5-14.5)
[2020-03-30 11:32] VITALS: BP 155/79
[2020-03-30] MEDS ORDERED: LIPITOR40 MG PO (11:48)
[2020-03-30 12:11] VITALS: BP 170/78
[2020-03-30 12:23] VITALS: BP 170/78
--- NOTE | 2020-03-30 13:29 | NUR ---
RECEIVED DISCHARGE ORDERS FOR TRANSFER TO [facility]. PRINTED DISCHARGE PACKET/INSTRUCTIONS/TRANSFER FORM GIVEN AND EXPLAINED TO PATIENT, SIGNED AND PLACED IN CHART. ALL QUESTIONS ANSWERED AT THIS TIME. PATIENT VERBALIZED UNDERSTANDING OF DISCHARGE INSTRUCTIONS. IV SITE TO RFA REMOVED, CATH INTACT, BANDAID APPLIED, NO BLEEDING NOTED. PHOTO TAKEN OF LLE WOUND AND PLACED IN CHART. DRESSED AND PREPARED FOR DISCHARGE. REPORT GIVEN TO NURSE TOM AT [facility]. PICKUP WILL BE AT 2:30PM.
--- NOTE | 2020-03-30 15:32 | NUR ---
PATIENT DISCHARGED WITH [facility], FULL REPORT GIVEN. 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
== END 2020-03-30 15:32 | DRG 710 ==
LOC: ED 11:05 → DU 14:57
PROVIDERS: Emergency Medicine; Radiology Vascular & Interventional Radiology; ADMIT Family Medicine; ATTEND Family Medicine
PROC: 047M3ZZ Dilation of Right Popliteal Artery, Percutaneous Approach (ICD-10-PCS; 2020-03-28)
PROC: 047T3ZZ Dilation of Right Peroneal Artery, Percutaneous Approach (ICD-10-PCS; 2020-03-28)
PROC: 04CT3ZZ Extirpation of Matter from Right Peroneal Artery, Percutaneous Approach (ICD-10-PCS; 2020-03-28)
PROC: 04CK3ZZ Extirpation of Matter from Right Femoral Artery, Percutaneous Approach (ICD-10-PCS; 2020-03-28)
PROC: 04CM3ZZ Extirpation of Matter from Right Popliteal Artery, Percutaneous Approach (ICD-10-PCS; 2020-03-28)
PROC: 047K3ZZ Dilation of Right Femoral Artery, Percutaneous Approach (ICD-10-PCS; principal; 2020-03-28 07:30)
DX: A41.9 Sepsis, unspecified organism (principal); E43 Unspecified severe protein-calorie malnutrition; E87.2 Acidosis; E11.51 Type 2 diabetes mellitus with diabetic peripheral angiopathy without gangrene; E83.51 Hypocalcemia; L03.116 Cellulitis of left lower limb; D64.9 Anemia, unspecified; I83.029 Varicose veins of left lower extremity with ulcer of unspecified site; E87.6 Hypokalemia; I10 Essential (primary) hypertension; Z20.828 Contact with and (suspected) exposure to other viral communicable diseases; Z79.4 Long term (current) use of insulin; Z68.30 Body mass index [BMI] 30.0-30.9, adult
CPT/HCPCS: 82962; 83880; 84439; C1753; C1887; C1894; G0378; J0696; J1200; J1644; J1815; J1885; J1940; J2001; J2250; J2310; J2543; J3010; J3370; J3480; J3490; J7030; J7050; J7060; P9047; Q9967; U0003